=== PATIENT | female | born 1950 | race Hispanic/Latino ===

== ENCOUNTER → 2022-07-15 | Outpatient (CLI) | payer MEDICARE, OTHER | END | disposition home or self-care (01) | LOC: RAH 14:42 | PROVIDERS: ATTEND Physical Medicine & Rehabilitation | DX: M48.062 Spinal stenosis, lumbar region with neurogenic claudication (principal); M47.816 Spondylosis without myelopathy or radiculopathy, lumbar region; M51.36 Other intervertebral disc degeneration, lumbar region | CPT/HCPCS: 72148 ==

== ENCOUNTER 2022-08-22 09:00 | Observation (INO) | payer MEDICARE ==
[~2022-08-22] VITALS: Ht 149.9 cm; Wt 68.8 kg
[2022-08-22 11:15] LABS: BASOPHILS % (AUTO) 0.4 % (0.0-5.0); EOSINOPHILS % (AUTO) 0.9 % (0.0-8.0); HEMATOCRIT 40.4 % (36-48); LYMPHOCYTES % (AUTO) 26.4 % (21.0-51.0); MEAN CORPUSCULAR HEMOGLOBIN 30.2 pg (27.0-33.0); MEAN CORPUSCULAR HGB CONC 34.2 g/dL (32.0-36.0); MEAN CORPUSCULAR VOLUME 88.4 fL (79-99); MONOCYTES % (AUTO) 9.1 % (3.0-13.0); NEUTROPHILS % (AUTO) 62.9 % (40.0-77.0); PLATELET COUNT (AUTO) 327 K/uL (130-400); RED BLOOD CELL COUNT(AUTO) 4.57 MIL/uL (4.00-5.50); RED CELL DISTRIBUTION WIDTH 12.6 % (11.0-15.5); WHITE BLOOD COUNT (AUTO) 7.4 K/uL (4.8-10.8)
[2022-08-22 11:21] LABS: CREATININE 0.7 mg/dL (0.5-1.5); POTASSIUM 4.3 mmol/L (3.5-5.1)
[2022-08-22 11:25] VITALS: BP 139/70
[2022-08-22] MEDS ORDERED: LISI20TA24 PO (11:56)
[2022-08-22] MEDS ORDERED: THYR60TA2 PO (11:56)
[2022-08-22] MEDS ORDERED: VILA40TA PO (11:56)
[2022-08-22] MEDS ORDERED: PREG75CA75 PO (11:56)
[2022-08-22] MEDS ORDERED: DICY20TA3 PO (11:56)
[2022-08-22] MEDS ORDERED: HYDR25TA PO (11:56)
[2022-08-22] MEDS ORDERED: ACET-2521 PO (11:56)
[2022-08-22] MEDS ORDERED: ATOR10 PO (11:56)
[2022-08-22] MEDS ORDERED: TRAM50TA4 PO (11:56)
[2022-08-22] MEDS ORDERED: L.AC1CAP6 PO (11:56)
[2022-08-22] MEDS ORDERED: SALM1CAP3 PO (11:56)
[2022-08-22] MEDS ORDERED: LEVO25TA54 PO (11:56)
[2022-08-22] MEDS ORDERED: LOPE2CAP PO (11:56)
[2022-08-25] VITALS (59 sets, daily range): BP systolic 101–132; BP diastolic 46–70
[2022-08-25] MEDS: CEFAZOLIN SODIUM 2 GM VIAL IVPB SCH ×2 (06:00→08:00)
[2022-08-25] MEDS ORDERED: LIDOCAINE PF 100MG/5ML (2%) SYRINGE 5ML ONE (06:53)
[2022-08-25] MEDS ORDERED: SUCCINYLCHOLINE CHLORIDE 20 MG/ML 10 ML VIAL ONE (06:53)
[2022-08-25] MEDS ORDERED: PROPOFOL 10 MG/ML 20ML VIAL IV ONE (06:54)
[2022-08-25] MEDS ORDERED: DEXAMETHASONE SOD PHOSPHATE 10MG/ML 1ML VIAL ONE ×2 (06:54→06:59)
[2022-08-25] MEDS ORDERED: ROCURONIUM 10MG/1ML SYR 10 MG/ML ML ONE (06:55)
[2022-08-25] MEDS ORDERED: MIDAZOLAM HCL 1 MG/ML 2ML VIAL ONE (06:55)
[2022-08-25] MEDS ORDERED: NEOSTIGMINE 5MG/5ML SYR IV ONE (06:55)
[2022-08-25] MEDS ORDERED: ONDANSETRON 4MG INJ ONE ×2 (06:55→07:00)
[2022-08-25] MEDS ORDERED: GLYCOPYRROLATE 1 MG/5 ML SYRINGE ONE (06:55)
[2022-08-25] MEDS ORDERED: FENTANYL CITRATE PF 50 MCG/1 ML 2ML VIAL ONE ×2 (06:56→08:49)
[2022-08-25] MEDS ORDERED: PHENYLEPHRINE HCL 10 MG/ML 1ML VIAL IV ONE (06:56)
[2022-08-25] MEDS ORDERED: MORPHINE PF 100MG/10ML AMP IV ONE (06:57)
[2022-08-25] MEDS ORDERED: CEFAZOLIN SODIUM 1 GM VIAL ONE (06:57)
[2022-08-25] MEDS ORDERED: THROMBIN-JMI 5000 UNIT/VIAL TP ONE (06:58)
[2022-08-25] MEDS: BUPIVACAINE/EPI/PF 0.25% 10ML VIAL IJ SCH ×2 (07:00→10:05)
[2022-08-25] MEDS ORDERED: ARTIFICIAL TEARS 3.5 GM OINTMENT ONE (07:33)
[2022-08-25] MEDS ORDERED: LISI1TAB53 PO (08:22)
[2022-08-25] MEDS ORDERED: MORPHINE 2 MG SYG IVP PRN (10:00)
[2022-08-25] MEDS ORDERED: LOPERAMIDE HCL 2 MG CAP PO PRN (10:00)
[2022-08-25] MEDS ORDERED: LACTATED RINGERS 1000ML 1,000 ML IV SCH (10:00)
[2022-08-25] MEDS ORDERED: DICYCLOMINE HCL 20 MG TAB PO PRN (10:00)
[2022-08-25] MEDS ORDERED: PROMETHAZINE HCL 25 MG/ML 1ML AMPULE IM PRN (10:00)
[2022-08-25] MEDS ORDERED: 0.9%NACL 10ML VIAL IVP PRN (10:00)
[2022-08-25] MEDS ORDERED: HYDROCODONE/ACETAMINOPHEN 5/325 MG TAB PO PRN (10:00)
[2022-08-25] MEDS: DEXAMETHASONE SOD PHOSPHATE 4 MG/ML 1ML VIAL IVP SCH ×3 (10:05→21:32)
[2022-08-25] MEDS: LACTOBACILLUS RHAMNOSUS GG 1 EACH CAP.SPRINK PO SCH (10:11)
[2022-08-25] MEDS ORDERED: MEPERIDINE-PF 25 MG/ML SYG ONE ×2 (10:11→10:34)
[2022-08-25] MEDS: FISH OIL 1000 MG/CAP PO SCH (10:14)
[2022-08-25] MEDS: LISINOPRIL 20 MG TABLET PO SCH (10:22)
[2022-08-25] MEDS: HYDROCHLOROTHIAZIDE 25 MG TABLET PO SCH (10:25)
[2022-08-25] MEDS: CEFAZOLIN SODIUM 1 GM VIAL IVP SCH ×2 (10:37→17:30)
[2022-08-25] MEDS ORDERED: ATORVASTATIN 10 MG TABLET PO SCH (21:00)
[2022-08-25] MEDS ORDERED: VILAZODONE HYDROCHLORIDE 40 MG PO SCH (21:00)
[2022-08-25] MEDS: TRAMADOL HCL 50 MG TABLET PO SCH (21:32)
[2022-08-26 04:31] VITALS: BP 121/68
[2022-08-26] MEDS: DEXAMETHASONE SOD PHOSPHATE 4 MG/ML 1ML VIAL IVP SCH (04:56)
[2022-08-26] MEDS ORDERED: LEVOTHYROXINE 25 MCG TABLET PO SCH ×2 (06:00→07:30)
[2022-08-26] MEDS ORDERED: THYROID PORK 60 MG PO SCH (07:30)
[2022-08-26 08:00] VITALS: BP 106/54
[2022-08-26] MEDS: TRAMADOL HCL 50 MG TABLET PO SCH (08:32)
[2022-08-26] MEDS: LACTOBACILLUS RHAMNOSUS GG 1 EACH CAP.SPRINK PO SCH (08:32)
[2022-08-26] MEDS: HYDROCHLOROTHIAZIDE 25 MG TABLET PO SCH (08:33)
[2022-08-26] MEDS: FISH OIL 1000 MG/CAP PO SCH (08:33)
[2022-08-26] MEDS: LISINOPRIL 20 MG TABLET PO SCH (08:33)
[2022-08-26] MEDS ORDERED: ACETAMINOPHEN 650MG ER TAB PO SCH (09:00)
[2022-08-26] MEDS ORDERED: PREGABALIN 75 MG CAPSULE PO SCH (09:00)
== END 2022-08-26 10:35 | disposition home or self-care (01) ==
LOC: DAHIP 08-25 06:00 → EDSTATUS 08-25 09:00 → 4AH 08-25 13:50
PROVIDERS: ADMIT Neurological Surgery; ATTEND Neurological Surgery
DX: M48.061 Spinal stenosis, lumbar region without neurogenic claudication (principal); Z20.822 Contact with and (suspected) exposure to COVID-19; I10 Essential (primary) hypertension; I44.7 Left bundle-branch block, unspecified; K66.0 Peritoneal adhesions (postprocedural) (postinfection); M24.28 Disorder of ligament, vertebrae; E03.9 Hypothyroidism, unspecified; Z79.899 Other long term (current) drug therapy; Z90.710 Acquired absence of both cervix and uterus
CPT/HCPCS: 80048; 85025; 87426; 36415; 71045; 63047; 63048 ×2; 96374; 96376 ×2; 96375; 72020; A6260; J1100 ×5; G0378 ×25; A4663; J7120; A4649 ×4; A4344; J3010 ×2; J0690 ×5; J3490 ×3; J2710; J0330; J2001; J2250; J2704; J2274; J2405 ×2; J2175 ×2; J2370; A4215; A4223; A4222; A4221; A4600; A4510